=== PATIENT | female | born 1955 | race Two or more races ===

== ENCOUNTER → 2017-09-06 | Emergency (ER) | payer OTHER ==
[~2017-09-06] VITALS: Ht 167.6 cm; Wt 72.6 kg
[~2017-09-06] MED LIST: COZAAR25 MG; GLUCOPHAGE XR500 MG; LISINOPRIL10 MG; NEXIUM40 MG/PACK; TOPROL XL25 M1; ZANTAC300 MG
== END | disposition home or self-care (01) ==
LOC: ER 19:22
DX: M94.0 Chondrocostal junction syndrome [Tietze] (principal); M62.830 Muscle spasm of back; S13.8XXA Sprain of joints and ligaments of other parts of neck, initial encounter; X58.XXXA Exposure to other specified factors, initial encounter; Y93.89 Activity, other specified; Y92.89 Other specified places as the place of occurrence of the external cause; Y99.8 Other external cause status

== ENCOUNTER 2017-11-27 13:46 | Emergency (ER) | payer OTHER ==
[~2017-11-27] VITALS: Ht 167.6 cm; Wt 75.3 kg
== END 2017-11-27 15:23 | disposition home or self-care (01) ==
LOC: ER 13:46
DX: B34.9 Viral infection, unspecified (principal); J11.1 Influenza due to unidentified influenza virus with other respiratory manifestations

== ENCOUNTER 2018-06-13 16:43 | Emergency (ER) | payer OTHER ==
[~2018-06-13] VITALS: Ht 152.4 cm; Wt 71.7 kg
== END 2018-06-13 19:58 | disposition home or self-care (01) ==
LOC: ER 16:43
DX: M79.662 Pain in left lower leg (principal); M79.661 Pain in right lower leg

== ENCOUNTER 2019-07-13 15:32 | Emergency (ER) | payer OTHER ==
[~2019-07-13] VITALS: Ht 167.6 cm; Wt 73.0 kg
[2019-07-13] MEDS ORDERED: DICLOFENAC SODI75 MG PO (16:52)
== END 2019-07-13 16:56 | disposition home or self-care (01) ==
LOC: ER 15:32
DX: S50.02XA Contusion of left elbow, initial encounter (principal); M12.522 Traumatic arthropathy, left elbow; W22.8XXA Striking against or struck by other objects, initial encounter; Y93.89 Activity, other specified; Y92.89 Other specified places as the place of occurrence of the external cause; Y99.8 Other external cause status

== ENCOUNTER 2020-02-28 12:39 | Emergency (ER) | payer OTHER ==
[~2020-02-28] VITALS: Ht 167.6 cm; Wt 73.9 kg
[~2020-02-28 12:39] MED LIST changes: +DICLOFENAC SODI75 MG PO
[2020-02-28] MEDS ORDERED: VOLTAREN100 GM TOP (16:34)
[2020-02-28] MEDS ORDERED: SKELAXIN800 MG PO (16:34)
== END 2020-02-28 16:31 | disposition home or self-care (01) ==
LOC: ER 12:39
DX: S20.212A Contusion of left front wall of thorax, initial encounter (principal); S20.211A Contusion of right front wall of thorax, initial encounter; S80.02XA Contusion of left knee, initial encounter; W18.39XA Other fall on same level, initial encounter; Y93.89 Activity, other specified; Y92.098 Other place in other non-institutional residence as the place of occurrence of the external cause; Y99.8 Other external cause status

== ENCOUNTER → 2020-04-10 | Outpatient (CLI) | payer OTHER ==
[~2020-04-10] MED LIST changes: +SKELAXIN800 MG PO; +VOLTAREN100 GM TOP
== END | disposition home or self-care (01) ==
LOC: RAD 08:11 → SONOGRAMA 08:11
PROVIDERS: ATTEND General Practice
DX: R10.2 Pelvic and perineal pain (principal); E04.2 Nontoxic multinodular goiter; M99.01 Segmental and somatic dysfunction of cervical region; M99.02 Segmental and somatic dysfunction of thoracic region; M99.03 Segmental and somatic dysfunction of lumbar region; M99.04 Segmental and somatic dysfunction of sacral region; S20.211A Contusion of right front wall of thorax, initial encounter; R10.13 Epigastric pain

== ENCOUNTER → 2020-12-03 | Outpatient (CLI) | payer OTHER | END | disposition home or self-care (01) | LOC: PPH VACUNA | PROVIDERS: ATTEND Emergency Medicine Pediatric Emergency Medicine | DX: Z23 Encounter for immunization (principal) ==

== ENCOUNTER 2021-10-15 10:33 | Outpatient (CLI) | payer OTHER | END 2021-10-15 10:34 | disposition home or self-care (01) | LOC: NUCLEAR 10:33 | PROVIDERS: ATTEND Surgery Surgical Oncology | DX: E04.2 Nontoxic multinodular goiter (principal) ==

== ENCOUNTER 2024-03-20 16:11 | Emergency (ER) | payer OTHER ==
[~2024-03-20] VITALS: Ht 167.6 cm; Wt 67.6 kg
[2024-03-20] MEDS ORDERED: NEURONTIN300 MG PO (16:44)
[2024-03-20] MEDS ORDERED: PEPCID AC20 MG (16:45)
[2024-03-20] MEDS ORDERED: PROTONIX40 MG PO (16:45)
[2024-03-20] MEDS ORDERED: GUAIFENESIN/DEXTROMETHORPHAN 10ML BLIST.PACK PO ONE ×2 (19:30→19:41)
[2024-03-20] MEDS ORDERED: METHYLPREDNISOLONE SOD SUCC 125 MG VIAL IV ONE (19:30)
[2024-03-20] MEDS ORDERED: LEVALBUTEROL HCL 1.25 MG/3 ML SOLUTION IH ONE ×2 (19:30→20:01)
[2024-03-20] MEDS ORDERED: IPRATROPIUM BROMIDE 0.5 MG/2.5 ML AMPUL.NEB IH ONE ×2 (19:30→20:02)
[2024-03-20] MEDS ORDERED: CETIRIZINE HCL 5 MG/5 ML ML PO ONE (19:30)
[2024-03-20] MEDS ORDERED: METHYLPREDNISOLONE SOD SUCC 40 MG VIAL ONE (19:40)
[2024-03-20] MEDS ORDERED: CETIRIZINE HCL 5MG/5ML BLIST.PACK PO ONE (19:40)
[2024-03-20 20:33] LABS: HEMATOCRIT 37.6 % (36.0-45.00); HEMOGLOBIN 12.5 g/dL (12.0-15.00); MEAN CELL VOLUME 86.4 fL (80.00-100.00); MEAN CORPUSCULAR HEMOGLOBIN 28.8 pg (27.00-32.0); MEAN CORPUSCULAR HGB CONC 33.3 g/dl (32.0-36.0); PLATELET COUNT 259 K/uL (150-450); RED BLOOD COUNT 4.35 M/uL (4.00-6.00); RED CELL DISTRIBUTION WIDTH 15.8 % (11.5-14.5)
[2024-03-20] MEDS ORDERED: LEVALBUTER1.25 MG/3 IH (22:00)
[2024-03-20] MEDS ORDERED: ZITHROMAX500 MG PO (22:00)
[2024-03-20] MEDS ORDERED: IPRATROPIU0.2 MG/1 M IH (22:00)
[2024-03-20] MEDS ORDERED: hydrOXYzine PAMOATE 25 MG CAPSULE PO ONE ×2 (22:00→22:01)
[2024-03-20] MEDS ORDERED: DIABETIC TUSSI118 M3 PO (22:00)
== END 2024-03-20 22:10 | disposition home or self-care (01) ==
LOC: ER 16:11
PROVIDERS: Nurse Practitioner Family
DX: J06.9 Acute upper respiratory infection, unspecified (principal); J45.909 Unspecified asthma, uncomplicated; Z20.822 Contact with and (suspected) exposure to COVID-19; E11.9 Type 2 diabetes mellitus without complications; Z79.84 Long term (current) use of oral hypoglycemic drugs; I10 Essential (primary) hypertension; Z88.2 Allergy status to sulfonamides; Z88.8 Allergy status to other drugs, medicaments and biological substances